=== PATIENT | female | born 1980 | race Caucasian/White ===

== ENCOUNTER 2019-04-25 19:35 | Emergency (ER) | payer OTHER ==
[2019-04-25] MEDS: KETOROLAC 30 MG INJ IM (22:45)
[2019-04-25] MEDS: HYDROCODONE/APAP (5/325) TAB PO (22:45)
[2019-04-26] MEDS: HYDROCODONE/APAP (10/325) TAB PO (00:34)
== END 2019-04-26 00:53 | disposition home or self-care (01) ==
LOC: FTE 04-26 00:53
DX: S92.355A Nondisplaced fracture of fifth metatarsal bone, left foot, initial encounter for closed fracture (principal); W01.0XXA Fall on same level from slipping, tripping and stumbling without subsequent striking against object, initial encounter; Y92.9 Unspecified place or not applicable
CPT/HCPCS: 29515; 73610; 73630; 73630-LT; 81025; 96372; 99284-25